=== PATIENT | female | born 1980 | race Caucasian/White ===

== ENCOUNTER 2022-04-21 13:15 | Emergency (ER) | payer MEDICAID, SELFPAY ==
[2022-04-21] VITALS (9 sets, daily range): BP systolic 110–137; BP diastolic 79–100; PULSE 81–111; RESP 12–18; TEMP 36.4–36.6; O2SAT 99–100; BMI 18.3
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
[2022-04-21 14:24] LABS: Amphetamine Urine VISTA POSITIVE (<1000 ng/mL); Barbiturate Urine VISTA NEGATIVE (< 200 ng/mL); Benzodiazepine Urine VISTA NEGATIVE (< 200 ng/mL); Cocaine Urine VISTA NEGATIVE (< 300 ng/mL); Ecstacy Urine VISTA POSITIVE (< 500 ng/mL); Methadone Urine VISTA NEGATIVE (< 300 ng/mL); PCP Urine VISTA NEGATIVE (< 25 ng/mL); THC Urine VISTA NEGATIVE (< 50 ng/mL); Vista UDS pH Range 6
[2022-04-21 14:30] LABS: Absolute Lymphocyte Count 1.65 X10^3/uL (0.83-4.51); Absolute Neutrophil Count 4.6 X10^3/uL (2.0-7.7); Basophil# 0.04 X10^3/uL; Basophil% 0.6 % (0-1); Eosinophil# 0.01 X10^3/uL; Eosinophils% 0.1 % (0-5); Hematocrit 45.9 % (37-47); Lymphocyte # 1.65 X10^3/ul (0.83-4.51); Lymphocyte % 22.9 % (19-41); Mean Corp Hgb Conc 32.7 g/dL (32-36); Mean Corpuscular Hgb 28.8 pg (27.0-32.0); Mean Corpuscular Volume 88.1 fL (81-99); Mean Platelet Vol. 10.6 fl (6.2-12.0); Monocyte% 12.5 % (0-10); NRBC Flagged by Analyzer 0 % (0-5); Neutrophil # 4.59 X10^3/uL (2.7-7.7); Neutrophil % 63.5 % (47-70); Platelet Count 254 K/mm3 (150-450); RBC Distribution Width CV 12.9 % (11.6-14.6); RBC Distribution Width SD 41.7 fl (35.1-43.9); Red Blood Count 5.21 M/mm3 (4.2-5.4); White Blood Count 7.2 K/mm3 (4.4-11.0)
[2022-04-21 14:45] LABS: Anion Gap 9 (5-15); BUN 8 mg/dL (7-18); BUN/Creat Ratio 12.8 RATIO (10-20); Calcium,Total 9.3 mg/dL (8.5-10.1); Chloride 108 mmol/L (98-107); Creatinine, Serum 0.63 mg/dL (0.55-1.02); EST Glomerular Filtration Rate 111 mL/min (>60); Est Glom Filt Rate - Afr Amer 134 mL/min (>60); Glucose 89 mg/dL (74-106); Potassium 3.7 mmol/L (3.5-5.1); Sodium Level 140 mmol/L (136-145)
[2022-04-21] MEDS: LORazepam 1 MG Tablet PO (14:48)
[2022-04-21 15:03] LABS: Internal QC Validated? YES +Cl - CLEAR BKGD; Pregnancy, Serum, hCG Quali. NEGATIVE Negative
[2022-04-21 15:05] LABS: Alcohol, Blood (Medical)-Serum < 3.0 mg/dL
--- NOTE | 2022-04-21 17:39 | ED.RN ---
FAXED RECORDS TO CRISIS
--- NOTE | 2022-04-21 20:29 | NURSING ---
CRISIS STATES THAT SHE WILL BE PLACING HER AT AN INPATIENT FACILITY.
[2022-04-22] VITALS: RESP 16
[2022-04-22 01:00] VITALS: RESP 14
--- NOTE | 2022-04-22 01:11 | NURSING ---
CRISIS CALLED AND UPDATED THAT THE PT IS PENDING AT [facility].
[2022-04-22 01:53] VITALS: BP 114/65; PULSE 115; RESP 18; TEMP 37.2; O2SAT 99
[2022-04-22] MEDS: LORazepam 1 MG Tablet PO (02:42)
== END 2022-04-22 03:01 ==
PROVIDERS: Emergency Provider Emergency Medicine; PCP Family Medicine; Visit Provider Emergency Medicine
DX: R45.851 Suicidal ideations (principal); F23 Brief psychotic disorder; F15.10 Other stimulant abuse, uncomplicated; F17.210 Nicotine dependence, cigarettes, uncomplicated; F41.9 Anxiety disorder, unspecified; Z79.899 Other long term (current) drug therapy
CPT/HCPCS: 80048; 80307; 82077; 84703; 85025; 87811; 99283; A4216

== ENCOUNTER 2022-09-26 18:51 | Emergency (ER) | payer BC, MEDICAID, SELFPAY ==
[2022-09-26 18:53] VITALS: BP 110/98; PULSE 131; RESP 18; TEMP 36.3; O2SAT 100; BMI 18.9
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
[2022-09-26 22:07] VITALS: O2SAT 97
[2022-09-26 22:10] VITALS: BP 110/74; PULSE 98; RESP 16; O2SAT 97
[2022-09-26 22:11] VITALS: BP 110/74; PULSE 74; RESP 16; O2SAT 97
== END 2022-09-26 22:11 | disposition home or self-care (01) ==
PROVIDERS: Emergency Provider Emergency Medicine; PCP Family Medicine; Visit Provider Emergency Medicine
DX: F32.A Depression, unspecified (principal); F17.210 Nicotine dependence, cigarettes, uncomplicated
CPT/HCPCS: 99285

== ENCOUNTER 2024-04-20 17:38 | Emergency (ER) | payer MEDICAID, SELFPAY ==
[2024-04-20 17:39] VITALS: BP 136/100; PULSE 114; RESP 18; TEMP 36.1; O2SAT 100; BMI 22.3
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
[2024-04-20 19:00] VITALS: BP 135/90; PULSE 92; RESP 16; O2SAT 999
[2024-04-20 20:00] VITALS: BP 112/80; PULSE 60; RESP 16; O2SAT 98
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
[2024-04-20 21:00] VITALS: BP 122/84; PULSE 88; RESP 12; O2SAT 98
[2024-04-20 21:00] LABS: Absolute Lymphocyte Count 2.18 X10^3/uL (0.83-4.51); Absolute Neutrophil Count 5.7 X10^3/uL (2.0-7.7); Basophil# 0.05 X10^3/uL; Basophil% 0.6 % (0-1); Eosinophil# 0.04 X10^3/uL; Eosinophils% 0.4 % (0-5); Hematocrit 38.3 % (37-47); Hemoglobin 12.9 g/dL (12.0-15.0); Lymphocyte # 2.18 X10^3/ul (0.83-4.51); Lymphocyte % 24.1 % (19-41); Mean Corp Hgb Conc 33.7 g/dL (32-36); Mean Corpuscular Hgb 29.1 pg (27.0-32.0); Mean Corpuscular Volume 86.3 fL (81-99); Mean Platelet Vol. 10.8 fl (6.2-12.0); Monocyte# 1.02 X10^3/uL; Monocyte% 11.3 % (0-10); NRBC Flagged by Analyzer 0 % (0-5); Neutrophil # 5.73 X10^3/uL (2.7-7.7); Neutrophil % 63.4 % (47-70); Platelet Count 263 K/mm3 (150-450); RBC Distribution Width CV 14.3 % (11.6-14.6); RBC Distribution Width SD 44.5 fl (35.1-43.9); Red Blood Count 4.44 M/mm3 (4.2-5.4)
[2024-04-20 21:17] LABS: Internal QC Validated? YES +Cl - CLEAR BKGD; Pregnancy, Serum, hCG Quali. NEGATIVE Negative
[2024-04-20 21:27] LABS: Anion Gap 13 (5-15); BUN 10 mg/dL (4-19); BUN/Creat Ratio 14.5 RATIO (10-20); Calcium,Total 8.9 mg/dL (7.6-11.0); Carbon Dioxide 17.7 mmol/L (21.0-32.0); Chloride 107 mmol/L (98-108); Creatinine, Serum 0.71 mg/dL (0.70-1.20); EST Glomerular Filtration Rate 108 (>60); Estimated Creatinine Clearance 83.64 ml/min (50-250); Glucose 113 mg/dL (70-99); Potassium 3.9 mmol/L (3.3-5.1); Sodium Level 138 mmol/L (133-145)
[2024-04-20 21:28] LABS: Alcohol, Blood (Medical)-Serum < 10.1 mg/dL (<=10.0)
[2024-04-20 22:00] VITALS: BP 110/70; PULSE 82; RESP 12; O2SAT 99
[2024-04-20 22:18] VITALS: BP 115/62; PULSE 74; RESP 14; O2SAT 98
[2024-04-20 22:19] LABS: Amphetamine Urine POSITIVE (<1000 ng/mL); Barbiturate Urine NEGATIVE (< 200 ng/mL); Benzodiazepine Urine NEGATIVE (< 200 ng/mL); Buprenorphine Urine NEGATIVE (< 200 ng/mL); Cocaine Urine NEGATIVE (< 300 ng/mL); Fentanyl, Urine NEGATIVE; Methadone Urine NEGATIVE (< 300 ng/mL); Opiates Urine NEGATIVE (< 300 ng/mL); Oxycodone, Urine NEGATIVE (< 100 ng/mL); PCP Urine NEGATIVE (< 25 ng/mL); THC Urine NEGATIVE (< 50 ng/mL)
--- NOTE | 2024-04-20 22:24 | CM.ED ---
Social work Called patient's mother, Lauryn, at [phone] and left a voicemail requesting a return call. Called [facility] at [facility] (ph: [phone]) and provided patient handoff. Faxed packet (f: ) to [facility] and updated nursing. Patient updated and accepting of needing placement. Received call back from patient's parents, Rambo and Lauryn, around [phone]. Updated patient's parents on patient's need for placement and Crisis sending referrals. Rambo expressed feeling lost at patient's recent decline, stating patient had been doing really well until patient's significant other, Kaden, got out of senior living. Rambo stated being thankful for people trying to help patient. No other needs identified at this time. Plan: placement at inpatient mental health facility pending Crisis referrals. Verenice Booker, CUSTOMER COMPLAINT SERVICE SUPERVISOR, COMMUNICATION ENGINEER
[2024-04-21 03:58] VITALS: BP 99/64; PULSE 66; RESP 16; TEMP 36.6; O2SAT 99
[2024-04-21 09:26] VITALS: BP 100/60; PULSE 79; RESP 16; O2SAT 100
--- NOTE | 2024-04-21 09:44 | ED.RN ---
Transport here for pt
== END 2024-04-21 09:45 ==
PROVIDERS: Emergency Provider Emergency Medicine; PCP Family Medicine; Visit Provider Emergency Medicine
DX: F22 Delusional disorders (principal); F23 Brief psychotic disorder; F41.9 Anxiety disorder, unspecified; F17.210 Nicotine dependence, cigarettes, uncomplicated; Z59.01 Sheltered homelessness
CPT/HCPCS: 80048; 80307; 82077; 84703; 85025; 99285